=== PATIENT | female | born 1970 | race Caucasian/White ===

== ENCOUNTER → 2017-04-16 | Outpatient (CLI) | payer BC, MEDICARE ==
[~2017-04-16] MED LIST: ALLERGY RELIEF10 M3; ALLERGY RELIEF10 M3 PO; AMBIEN 10 MG TA10 MG PO; AMITIZA8 MCG PO; AMITRIPTYLINE H50 M2 PO; AMITRIPTYLINE H50 M4 PO; AMITRIPTYLINE H75 M1 PO; ATORVASTATIN CA10 MG PO; BLACK COHOSH540 MG PO; BREO ELLIPTA 21 EACH; BREO ELLIPTA 21 EACH INH; CALCIUM 600 +1 EAC1 PO; CALCIUM 600 +1 EAC5 PO; CHANTIX1 MG PO; CLONAZEPAM 1 MG1 M1 PO; CLONAZEPAM PO; CLONIDINE0.1 PO; CRESTOR5 MG PO; CYCLOBENZAPRINE10 MG PO; CYMBALTA60 MG PO; DICLOFENAC POTA50 MG PO; DILAUDID 4 MG TA4 M1 PO; DURAGESIC1 EACH TRANSDERM; DURAGESIC25 MCG/HR TRANSDERM; EXCEDRIN CAPLE1 EACH PO; FENOFIBRATE160 MG PO; FENTANY TRANSDERM; FENTANYL PA12 MCG/HR TP; FENTANYL PA25 MCG/HR TRANSDERM; FENTANYL PA50 MCG/HR TP; FENTANYL PATCH75 MCG TP; FIBER SELECT G1 EACH PO; IMITREX4 MG/0.5 M SQ; KLONOPIN1 MG PO; LAMOTRIGINE100 MG PO; LINZESS145 MCG PO; LIPITOR 10 MG10 M1 PO; MAGNESIUM CITR100 GM MC; METHADONE HCL 110 M1 PO; METHOCARBAMOL500 M1 PO; MIRALAX17 GM PO; MIRALAX255 GM PO; NABUMETONE 500500 M1 PO; NABUMETONE 750750 M1 PO; OMEPRAZOLE40 MG PO; ONDANSETRON HCL4 M2 PO; ONE-A-DAY WOMENS PO; OXCARBAZEPINE600 MG; OXYCODONE HCL15 MG PO; PAIN CREAM; PERCOCET 10-321 EACH PO; PREMARIN1.25 MG PO; PRENATAL PO; PROAIR HFA8.5 GM INH; PROAIR HFA8.5 GM PO; RELAFEN750 MG PO; REQUIP 0.25 M0.25 MG PO; RESTASIS1 EACH OPHTHALMIC; RIZATRIPTAN5 MG PO; SAVELLA50 MG PO; STOOL SOFTENER100 MG PO; SUMATRIPTAN SUC50 MG PO; SYMBICORT160 MCG/4. INH; TOPAMAX100 MG PO; TOPROL XL25 MG PO; TRILEPTAL600 MG PO; WELLBUTRIN SR150 MG PO; WELLBUTRIN SR200 MG PO; [UNRECOGNIZED DRUG - OTHER] PO; biotene; fentanyl TRANSDERM; linzess PO; vitamin b; vitamin b12; vitamin c
--- NOTE | 2017-05-01 09:02 | PAINCON ---
[place] [address] PAIN MANAGEMENT CONSULTATION Name: GAVIOTA HOYOS [facility] [id number] Admission: 04/16/17 Attend Phys: Iker Menendez DO Discharge: Date of : 70 Report #: [id number] THIS REPORT FOR: //name// CC: Fareed Menendez DATE OF SERVICE: 04/16/2017 CHIEF COMPLAINT: Neck pain, low back pain, and bilateral hip pain. HISTORY OF PRESENT ILLNESS: As you know, the patient is a 46-year-old female with multiple pain generators, the majority of symptoms are related to the neck and low back, now experiencing bilateral hip pain. She returns today in followup visit for medication management. Overall, the patient reports a 50% improvement in overall pain with cervical epidural injections, most recent was in January. She is considering the next in a series of injections, but at this time is requesting refill of medications for which she reports 45% improvement in overall pain. She returns requesting refill on medications, understanding that her medications are at the highest level possible per CDC's recommended guidelines. ALLERGIES: ISOPROTERENOL, PENICILLIN, and CODEINE. CURRENT MEDICATIONS: Amitriptyline, Excedrin, Lipitor, Wellbutrin, calcium carbonate, clonazepam, Premarin, fenofibrate, fentanyl, Linzess, loratadine, metoprolol, Savella, magnesium citrate, omeprazole, ondansetron, oxycodone, and MiraLax. SOCIAL HISTORY: The patient smokes about a half pack tobacco per day and has done so for greater than 30 years. She denies IV or illicit drug use. Denies any chronic alcohol use. She is unaccompanied today. IMAGING: No new imaging available. PHYSICAL EXAMINATION: VITAL SIGNS: Blood pressure 137/93, pulse 84, respiratory rate 16 and unlabored, the patient is 97% on room air, current temperature 98.3 degrees Fahrenheit, height 5 feet 3 inches tall, weight 160 pounds, and BMI calculated 28.3. GENERAL: Well-developed, well-nourished, well-hydrated 46-year-old female, appearing stated age, placing current pain score 7/10. HEENT: Normocephalic, atraumatic. Pupils are equal, round, and reactive to light. Extraocular muscles are intact. Speech is fluent. EXTREMITIES: Show no clubbing, no cyanosis, and no edema. MUSCULOSKELETAL: Upper extremity strength is symmetrical again today 5/5. She is intact to light touch from C5-T1 dermatomes. [place] [address] PAIN MANAGEMENT CONSULTATION Name: GAVIOTA HOYOS Room: [facility]#: [id number] Admission: 04/16/17 Attend Phys: Iker Menendez DO Discharge: Date of : 70 Report #: [id number] left. Gait is antalgic, using a cane for ambulation, favoring left lower extremity over right. ASSESSMENT: 1. Cervical radiculopathy. 2. Cervical spondylosis with radicular symptoms. 3. Myofascial pain. 4. Chronic low back pain. 5. Chronic intractable pain. 6. Opioid dependency. PLAN: 1. The patient returns today in followup visit requesting refill on medications at current dosing. She is noted to be on a fairly high dose of opioids currently over what the CDC recommends, but we have been unsuccessful alleviating pain and continuing to provide medications at CDC recommended levels. We have discussed this again with the patient and have indicated there is possibility that she may ultimately have to look towards more aggressive treatment options. At this time, the patient wishes to remain on current therapy understanding that she ultimately will need to make some changes in her treatment options as the [facility] makes further changes. She has requested that she will return also in approximately 2 weeks for the possibility of undergoing a cervical epidural injection, which we will begin the process of preapproval. 2. The patient was provided a prescription of fentanyl 25 mcg patch 1 patch q.72 hours, this in conjunction with a 12 mcg patch q.72 hours equaling 37 mcg total dosing. She was given the following prescriptions to make the 37 mcg total, she received ten 25 mcg patches and ten 12 mcg patches releasing of today, 4 weeks from today, 8 weeks from today, a total of 37 mcg. 3. The patient was provided a prescription of oxycodone 5/325 one tab every 6 hours p.r.n. for pain, #120, release dates of today, 4 weeks from today, 8 weeks from today, 3 months' worth of medication. 4. The patient was provided a prescription of diclofenac potassium 50 mg dose 1 tab p.o. b.i.d., #180, which is a 3-month prescription. 5. The patient was provided a prescription of methocarbamol 500 mg dose 1 tab p.o. t.i.d., #270, which is a 3-month prescription. 6. We will see the patient back in followup visit for possible cervical epidural injection in 2-3 weeks. Otherwise, we will see the patient back in followup visit at normal appointment time for 3-month prescription refills. <ELECTRONICALLY SIGNED> [place]: [place] [id number] lupe Caceres
== END ==
LOC: M.PC 00:54
DX: M25.552 Pain in left hip (principal); M54.12 Radiculopathy, cervical region; M47.892 Other spondylosis, cervical region; M79.1 Myalgia; F11.20 Opioid dependence, uncomplicated; G89.29 Other chronic pain; Z87.891 Personal history of nicotine dependence

== ENCOUNTER → 2017-07-10 | Outpatient (CLI) | payer BC, MEDICARE ==
--- NOTE | 2017-07-18 15:40 | PAINCON ---
[address] [address] PAIN MANAGEMENT CONSULTATION Name: SOHAGAVIOTA Carlos Room: [facility].#: [id number] Admission: 07/10/17 Attend Phys: Verena Soto MD Discharge: Date of : 70 Report #: [id number] THIS REPORT FOR: //name// CC: Fareed uQan DATE OF SERVICE: 07/10/2017 FOLLOWUP COMPLAINT: Pain in the neck, left hip and right hip. FOLLOWUP HISTORY: The patient is a 46-year-old female, who has been followed in the Pain Clinic by Dr. Iker Menendez. She has an extensive history of back pain. She has been seen and has had back surgery on a number of occasions. She has reached maximum surgical benefit at this juncture. She has been treated with opioid medications to help control her pain. She rates it as a 7/10. Pain is particularly exacerbated when she is active. Notes that the pain is worse when she is sitting on her left hip as well as sometimes while lying down. Pain medications are beneficial as well as heat and rest. She states that she had surgery with back decompression and instrumentation in 1997. In 2000, she had a back revision in about the L3-L4, L4-L5, and L5-S1 area. She has had titanium cages placed. She had an additional surgery secondary to nerve pain because of a screw pressing on a nerve. ALLERGIES: PENICILLIN, CODEINE, ISUPREL. MEDICATIONS: Current medications: Amitriptyline 50 mg at bedtime for migraines, aspirin (Excedrin) p.r.n. migraines, Lipitor 10 mg, 5 mg tablets at bedtime, Wellbutrin 200 mg SR for migraines, calcium, clonazepam 1 mg t.i.d., stool softener docusate 100 mg, estrogen/Premarin 1.2 mg b.i.d., fenofibrate 160 mg for cholesterol, fentanyl patch 75 mcg topical q. 72 hours, insulin, Linzess 145 mcg capsules, loratadine 10 mg for migraines, magnesium citrate 500 g, metoprolol 25 mg, Savella 50 mg b.i.d. for nerve pain to left leg, multivitamin, Omeprazole 40 mg, Ondansetron 4 mg q. 8 hours p.r.n., oxycodone IR 15 mg 1 tablet q.i.d., Restasis b.i.d., ProAir t.i.d. Medications used in the past: Imitrex, Topamax, sumatriptan tablet b.i.d., Relafen 750 mg. PAST MEDICAL HISTORY: Neck pain, low back pain, bilateral hip pain, myofascial pain, back fusion x3, tobacco use, migraine headaches, hypercholesterolemia, hypertension. SOCIAL HISTORY: Smokes cigarettes and smoked for 30 years, but denies [place] [address] PAIN MANAGEMENT CONSULTATION Name: SOHAGAVIOTA M Room: [facility]#: [id number] Admission: 07/10/17 Attend Phys: Verena Soto MD Discharge: Date of : 70 Report #: [id number] PAST SURGICAL HISTORY: Lumbar surgery, fusion, low back x3. PAIN CLINIC ASSESSMENT: 1. The patient has arthritic changes in the low back area. 2. Height 5 feet 3 inches, weight 162 pounds, BMI is 28.8. 3. Vital signs: Blood pressure 135/90, heart rate 93, respiratory rate 16, room air saturation 97, temperature 98.3. 4. Pain intensity: Pain in the neck is 7, pain in the low back in the area of fusion is 7. 5. Fall risk: The patient has not fallen in the last 3 months. 6. Blood thinner: The patient is not on a blood thinner. 7. History of hypertension: The patient is being treated for hypertension. 8. Opioid therapy greater than 6 weeks: The patient is on a contract with the Pain Clinic. 9. Risk assessment tool. 10. Functional assessment tool. 11. Recreational drug use: The patient denies use of recreational drugs. 12. Tobacco: The patient has 31-[id number]-cvfq history and smokes 1/2 pack per day. 13. Alcohol use: Uses alcohol on rare occasion. PHYSICAL EXAMINATION: GENERAL: The patient is a well-developed, well-nourished, white female. Appears her stated age. Rates her pain as a 7/10. HEENT: Normocephalic, atraumatic. Extraocular eye muscles intact. Sclerae nonicteric. Hearing is within normal limits. Mucous membranes are moist. NECK: Without adenopathy or bruits. CHEST: Clears to auscultation. HEART: Regular rate without murmur. MUSCULOSKELETAL: Without significant scoliosis, kyphosis or lordosis. Upper extremity: The patient rates her pain as a 7. She has pain radiating to her arms which has improved in the past with epidural steroid injections. Lower extremities: The patient has pain in the lower back with pain in her left hip greater than that in the right. Generally, muscle strength is 5/5 for the major muscle groups in the lower extremity. Muscle bulk is symmetrical. Upper extremities strength is 5/5, intact to light touch. C5-T1 dermatomes. Spurling test positive on the left. Gait is antalgic, using a cane for ambulation favoring her left lower extremity over the right. ASSESSMENT: 1. Cervical radiculopathy. 2. Cervical spondylosis with radicular symptoms. 3. Myofascial pain. 4. Chronic low back pain. 5. Chronic intractable pain. 6. Opioid dependency. 7[place] [address] PAIN MANAGEMENT CONSULTATION Name: SOHAGAVIOTA M Room: [facility]#: [id number] Admission: 07/10/17 Attend Phys: Verena Soto MD Discharge: Date of : 70 Report #: [id number] 8. Hypercholesterolemia. 9. Hypertension. RECOMMENDATIONS: We discussed treatment with the patient. At this juncture, she feels like her medications are working reasonably well. She does have a significant surgical history. She continues to have pain and discomfort, which at this juncture is reasonably controlled with her medications. We will continue to work toward the CDC recommendations. She will return to the Pain Clinic in the future. At that point, she will consider a cervical epidural steroid injection. We will renew her medications for fentanyl 25 mcg patches q. 72 hours in conjunction with a 12 mcg patch for a total of 37 mcg per hour. A script for oxycodone has also been rewritten. She will call us if she has any problems with her medications. We would like to thank you for letting us participate in her care. We hope she continues to improve. <ELECTRONICALLY SIGNED> By: Verena Soto MD 07/18/17 1540 [id number]. Angelo Soto MD /nt
== END ==
LOC: M.PC 03:00
DX: M54.12 Radiculopathy, cervical region (principal); I10 Essential (primary) hypertension; E78.00 Pure hypercholesterolemia, unspecified; M47.892 Other spondylosis, cervical region; M79.1 Myalgia; G43.909 Migraine, unspecified, not intractable, without status migrainosus; F11.20 Opioid dependence, uncomplicated; F17.220 Nicotine dependence, chewing tobacco, uncomplicated

== ENCOUNTER → 2017-10-02 | Outpatient (CLI) | payer BC, MEDICARE ==
--- NOTE | 2017-10-04 15:18 | PAINCON ---
[address] [address] PAIN MANAGEMENT CONSULTATION Name: SOHAGAVIOTA Carlos Room: [facility]#: [id number] Admission: 10/02/17 Attend Phys: Verena Soto MD Discharge: Date of : 70 Report #: [id number] THIS REPORT FOR: //name// CC: Fareed Soto DATE OF SERVICE: 10/02/2017 FOLLOWUP COMPLAINT: Here for medication and I would like to have a cervical epidural steroid injection. FOLLOWUP HISTORY: The patient is a 47-year-old female who has been followed in the pain clinic. She has history of back pain. Also, has a history of back surgery on number of occasions. She has undergone maximum number of surgeries at this juncture. She has been treated with opioid medication for control of her pain. She does have some pain and discomfort involving her neck with pain that radiates down into both arms. She rates this as a 6/10 at this juncture. She has undergone cervical epidural steroid injections and gleaned benefits from these. It has been greater than 6-7 months that she has had a cervical epidural steroid injection and found benefit from these. She would like to proceed with a cervical epidural steroid injection at this juncture. She finds that her fentanyl, Percocet, and other pain medications are helpful. She is somewhat stressed and that her recently underwent heart surgery. Had aortic valve surgery and has had a second one about 4-5 days ago. He is now at home. He did have some complications where his leg swollen and had a compartment syndrome. Because of this added stress and care for her she has noted worsening of her pain and discomfort; therefore, she would like to proceed with a cervical epidural steroid injection. ALLERGIES: PENICILLIN, CODEINE, ISUPREL. MEDICATIONS: Amitriptyline 50 mg at bedtime for migraines, aspirin p.r.n., for migraines, Lipitor 10 mg, 5 mg tablets at bedtime, Wellbutrin 200 mg SR for migraines, calcium, clonazepam 1 mg t.i.d., stool softener, docusate 100 mg, estrogen/Premarin 1.2 mg b.i.d., Fenofibrate 160 mg for cholesterol, fentanyl patch 75 mcg q. 12 hours, insulin, Linzess 145 mcg capsule, loratadine 10 mg for migraines, magnesium citrate 500 mg, metoprolol 25 mg, Savella 50 mg b.i.d. for nerve pain to the left leg, multivitamin, omeprazole 40 mg, ondansetron 4 mg q. 8 hours, oxycodone IR 15 mg 1 tablet q.i.d., Restasis b.i.d., ProAir t.i.d. MEDICATIONS: Her medication use Include Imitrex, Topamax, sumatriptan b.i.d., Relafen. PAST SURGICAL HISTORY: Lumbar surgery, fusion, low back x 3. PAIN CLINIC ASSESSMENT: [place] [address] PAIN MANAGEMENT CONSULTATION Name: GAVIOTA HOYOS [facility] [id number] Admission: 10/02/17 Attend Phys: Verena Soto MD Discharge: Date of : 70 Report #: [id number] 1. The patient has arthritic changes in the lower portion of her back. 2. Height 5 feet 3 inches, weight 164 pounds, BMI is 29. 3. Vital signs: Blood pressure 129/73, heart rate 82, respiratory rate 16, room air saturation 95% and temperature 98.2. 4. Pain intensity 09/16. 5. Fall risk. The patient has not fallen in the last 3 months. 6. Blood thinner. The patient is not on a blood thinning medication. 7. History of hypertension. The patient is being treated for hypertension. 8. Opioid therapy greater than 6 weeks. The patient is on a contract with the pain clinic gets her medication from one source. 9. Risk assessment tool. 10. Functional assessment tool. 11. Recreational drug use. The patient denies use of recreational drugs. 12. Tobacco: The patient has a 92-epwo-brpc history and smokes 1-1/2 pack of cigarettes per day. 13. Alcohol use. The patient uses alcohol on rare occasion. PHYSICAL EXAMINATION: GENERAL: The patient is a well-developed, well-nourished white female. She appears her stated age. She is alert and oriented x 3. Speech is fluent. Affect is appropriate. HEENT: Normocephalic, atraumatic. Extraocular eye muscles intact. Sclerae nonicteric. Hearing is within normal limits. Mucous membranes are moist. NECK: Without adenopathy or bruits. CHEST: Clear to auscultation. HEART: Regular rate without murmurs. MUSCULOSKELETAL: Without significant scoliosis, kyphosis or lordosis. Upper extremity, the patient has a pain, which she rates as a 6-7. She has pain that radiates down into her arms. This is improved in the past with cervical epidural steroid injection that she would like to proceed with an injection at this juncture. EXTREMITIES: Muscle strength is judged to be 5/5 for the major muscle groups in the lower extremities. Muscle bulk is symmetrical. Upper muscle strength is 5/5. Intact to light touch. ____ through T1 dermatomes Spurling's test is positive on the left. Gait is antalgic. The patient walks with use of her cane favoring her left lower extremity on the right. ASSESSMENT: 1. Cervical radiculopathy. 2. Cervical spondylosis with radicular symptoms. 3. Myofascial pain. 4. Chronic low back pain. 5. Chronic intractable pain. 6. [place] [address] PAIN MANAGEMENT CONSULTATION Name: GAVIOTA HOYOS Room: [facility]#: [id number] Admission: 10/02/17 Attend Phys: Verena Soto MD Discharge: Date of : 70 Report #: [id number] 7. Migraines. 8. Hypercholesterolemia. 9. Hypertension. RECOMMENDATIONS: We discussed treatment options with the patient. Risks and benefits of a cervical epidural steroid injection were again reviewed. Possible complications were discussed. They include but are not limited to infection, increased muscle soreness, headache, bleeding, muscle tenderness. The patient elects to proceed. A script for fentanyl patches 25 mcg 1 q. 72 hours and 12 mcg q. 72 hours for a total of 37 mcg per hour has been written. The patient has also been given a script for oxycodone. She will proceed with a cervical epidural steroid injection. PROCEDURE NOTE: The patient was taken to the procedure area. She was assisted in getting on the examination table. Her back was sterilely prepped with a Betadine solution, which was allowed to dry. A pillow was placed under her chest for bolstering and improvement of cervical positioning. Fluoroscopy using anterior, posterior as well as lateral imaging were used. A 17-gauge Tuohy with loss of resistance technique was placed in the midline cervical area at the C7-T1. A total of 120 mg triamcinolone was injected. Anterior, posterior as well as lateral viewing were appropriate. The patient tolerated the procedure well. A Band-Aid was placed in the appropriate area. No bleeding was noted. The patient was taken to the recovery room where she remained for an appropriate amount of time. She will follow up in the future as needed. We would like to thank you for letting us participate in her care. We hope she continues to improve. <ELECTRONICALLY SIGNED> By: Verena Soto MD 10/04/17 1518 [id number]. Angelo Soto MD /nt
== END | disposition home or self-care (01) ==
LOC: M.PC 04:56
DX: M47.22 Other spondylosis with radiculopathy, cervical region (principal); M79.1 Myalgia; G89.29 Other chronic pain; I10 Essential (primary) hypertension; G43.909 Migraine, unspecified, not intractable, without status migrainosus; E78.00 Pure hypercholesterolemia, unspecified; F11.20 Opioid dependence, uncomplicated; Z88.0 Allergy status to penicillin; Z88.8 Allergy status to other drugs, medicaments and biological substances; Z98.890 Other specified postprocedural states; Z79.899 Other long term (current) drug therapy; Z79.82 Long term (current) use of aspirin

== ENCOUNTER → 2017-12-18 | Outpatient (CLI) | payer BC, MEDICARE ==
--- NOTE | 2018-01-21 10:30 | PAINCON ---
[address] [address] PAIN MANAGEMENT CONSULTATION Name: SOHAGAVIOTA Gonzalez Room: [facility].#: [id number] Admission: 12/18/17 Attend Phys: Verena Soto MD Discharge: Date of : 70 Report #: [id number] THIS REPORT FOR: //name// CC: Fareed Soto DATE OF SERVICE: 12/18/2017 CHIEF COMPLAINT: Neck and back pain. HISTORY OF PRESENT ILLNESS: The patient is a 47-year-old female who has been followed in the pain clinic because of chronic back pain. She has a history of a number of back surgeries. She has undergone epidural steroid injections in the past. She claims some benefits from this in the past. She is having pain in her left hip and foot. Complains of a deep throbbing discomfort. She is frequently experiencing spasms. She has a history of bursitis. Overall, she rates her pain as a 7/10. She finds fentanyl patches to be beneficial. Does have some problems with the adhesives on ____. She would like to continue with fentanyl patches. She has had cages in the lower back area. She feels that there may have been some changes in her back at this juncture. She is experiencing more pain and she would ____ ADDENDUM ALLERGIES: PENICILLIN, CODEINE, ISUPREL. CURRENT MEDICATIONS: ProAir, amitriptyline 50 mg at bedtime, Excedrin 1 tablet, Lipitor 10 mg, b black cohosh 540 mg, Symbicort 160/4.5, Wellbutrin-SR 200 mg, vitamin D3 600, clonidine 0.1 mg tablet, Restasis one drop each eye b.i.d., potassium 50 mg t.i.d., estrogen 1.25 b.i.d., fenofibrate 160, Duragesic 12.5 mcg patch, Mylan brand q. 72 hours. PAIN CLINIC ASSESSMENT: 1. The patient has some arthritic changes in her back secondary to back surgery. 2. Height 5 feet 3 inches, weight 157 pounds, BMI 25. 3. Vital signs: Blood pressure 129/74, heart rate 81, respiratory rate 16, room air saturation 98%, temperature 98. 4. Pain score 7/10. 5. Fall history: The patient has not fallen in the last 3 months. 6. Blood thinner. The patient is not on a blood thinning medication. 7. Hypertension. The patient has not been treated for hypertension. 8. Opiate therapy greater than 6 weeks. The patient receives her medications through the pain clinic. 9. Risk assessment tool. 10. [place] [address] PAIN MANAGEMENT CONSULTATION Name: GAVIOTA HOYOS Room: [facility]#: [id number] Admission: 12/18/17 Attend Phys: Verena Soto MD Discharge: Date of : 70 Report #: [id number] 11. Recreational drug use. The patient denies use of recreational drugs. 12. Tobacco: The patient has smoked for 30 years. Smokes 1/3rd pack of cigarettes daily. 13. Alcohol: The patient drinks an alcoholic beverage weekly. PHYSICAL EXAMINATION: GENERAL: The patient is a well-developed, well-nourished white female. She appears her stated age. She is alert and oriented. Speech is fluent. Affect is appropriate. HEENT: Normocephalic, atraumatic. Extraocular eye muscles intact. Sclerae nonicteric. Hearing is within normal limits. Mucous membranes are moist. NECK: Without adenopathy or bruits. CHEST: Clear to auscultation without rhonchi or rales. HEART: Regular rate without murmurs. MUSCULOSKELETAL: Without significant scoliosis, kyphosis, or lordosis. The patient does sit in a chair, leaning extremely to the right with her left buttocks off the chair. Complains of pain and discomfort with pain in the left hip, which is deep, throbbing. States that this wakes her in the morning. She has a deep ache. She has difficulty walking and placing weight on this side. Upper extremity muscle strength is judged to be 5/5. The patient uses her hands to go on the chair to go from a sitting to a standing position. IMPRESSION: 1. History of cervical radiculopathy, improved with cervical epidural steroid injection on 10/02/2017. 2. History of bursitis with pain and discomfort in the left hip area today. 3. Myofascial pain. 4. Chronic low back pain. 5. Chronic intractable pain. 6. Opioid dependency. 7. Migraines. 8. Hypercholesterolemia. 9. Hypertension. RECOMMENDATION: The patient feels that her pain level has changed. We will have the patient to undergo an MRI to note changes in the lumbar area. She feels again that her pain is quite problematic. She has a history of cages placed to stabilize the low back area. She has significant pain and discomfort in her right leg and hip. The patient feels that if there are some changes that she would consider surgery to help minimize her pain and discomfort. A script for her medications of fentanyl patches 25 mcg and 50 mcg dosings were provided. A script for Percocet 10/325 one p.o. q.4-6 hours also has been written. We discussed the use of opioid medications with the patient. We explained the problems with opioid medications, which can cause dependency as well as become less effective as the patient develop tolerance. The patient is aware of this fact and would like to continue with her medications at this [place]uncture[place] [address] PAIN MANAGEMENT CONSULTATION Name: SOHAGAVIOTA Carlos Room: [facility]#: [id number] Admission: 12/18/17 Attend Phys: Verena Soto MD Discharge: Date of : 70 Report #: [id number] for these medications has been written. We would like to thank you for letting us participate in her care. We hope she continues to improve. <ELECTRONICALLY SIGNED> By: Verena Soto MD 01/21/18 1030 [id number]. Angelo Soto MD /nt
== END ==
LOC: M.PC 04:47
DX: M54.12 Radiculopathy, cervical region (principal); I10 Essential (primary) hypertension; E78.00 Pure hypercholesterolemia, unspecified; G43.909 Migraine, unspecified, not intractable, without status migrainosus; M54.5 Low back pain; M79.1 Myalgia; G89.4 Chronic pain syndrome; F11.20 Opioid dependence, uncomplicated

== ENCOUNTER → 2017-12-25 | Outpatient (CLI) | payer BC, MEDICARE | LOC: M.RAD 15:39 → M.MRI 15:39 | DX: M43.26 Fusion of spine, lumbar region (principal); M25.551 Pain in right hip; M79.604 Pain in right leg ==

== ENCOUNTER → 2018-03-21 | Outpatient (CLI) | payer BC, MEDICARE ==
--- NOTE | ~2018-03-21 | PAINCON ---
[address] [address] PAIN MANAGEMENT CONSULTATION Name: SOHAGAVIOTA Gonzalez Room: [facility].#: [id number] Admission: 03/21/18 Attend Phys: Verena Soto MD Discharge: Date of : 70 Report #: [id number] THIS REPORT FOR: //name// CC: Fareed Barajas DATE OF SERVICE: 04/01/2018 CHIEF COMPLAINT: "Pain in the left hip, neck and back. Here for medication renewal." FOLLOWUP HISTORY: The patient is a 47-year-old female who has been followed in the Pain Clinic because of chronic back pain. She has pain in her left hip, neck and back as well at this juncture. She describes the pain in her left hip as the most problematic portion today. It is a deep throbbing pain. She also has pain in her neck that radiates into both arms, right more so than the left. She feels that her medications are helpful. She has returned today for renewal of her medications. She has undergone epidural steroid injections in the past. She has a history of bursitis. This significance of pain in her low back area has been quite problematic and has resulted in use and placement of cages in the lower portion of her back. She rates her pain as a 7.5-8 today. She has returned with a desire to undergo renewal of her medications. Overall, she feels that with the medications there is about a 50% improvement in her pain. ALLERGIES: PENICILLIN, CODEINE, ISUPREL. CURRENT MEDICATIONS: ProAir, amitriptyline 50 mg at bedtime, ____ mg, Lipitor 10 mg, black cohosh 540 mg, Symbicort 160/4.5, Wellbutrin-SR 200 mg, vitamin D3 of 600 mg, clonidine 0.1 mg, Restasis drops to each eye b.i.d., potassium 50 mg t.i.d., estrogen 1.25 mg b.i.d., fenofibrate 160 mg, Duragesic patch 12.5 mcg Mylan brand q. 72 hours, Breo Ellipta 200-25, loratadine 10 mg for allergies, magnesium citrate, methocarbamol 500 mg, metoprolol XL 25 mg, Savella 50 mg, multivitamin, Zofran 4 mg, diclofenac. LABORATORY DATA: MRI of the lumbar spine dated 12/25/2017 revealed: 1. Laminectomies L3 through L5 with anterior fusion. 2. L2-L3 [id number] central canal stenosis due to mild anterolisthesis and mild disc bulging and ligamentum thickening. Advanced L2-L3 degenerative disc space loss. 3. Left-sided L2-L3 mild neural foraminal narrowing. X-ray hip AP and lateral left and pelvis for pain problematic for the last 5 months, comparison with 09/13/2015 findings, [place] [address] PAIN MANAGEMENT CONSULTATION Name: GAVIOTA HOYOS Room: [facility]#: [id number] Admission: 03/21/18 Attend Phys: Verena Soto MD Discharge: Date of : 70 Report #: [id number] seen. There is lower lumbar fusion. No acute abnormalities. Normal disc spaces. PAIN CLINIC ASSESSMENT/PQRS: 1. History of osteoarthritis with arthritic changes in the lower portion of the back. 2. Height 5 feet 3 inches, weight 148 pounds, BMI is 26.3. 3. Vital signs: Blood pressure 119/85, heart rate 84, respiratory rate 16, room air saturation 99%, temperature 98.2. 4. Pain intensity: 7.5-8/10. 5. Fall history: The patient has not fallen in the last 3 months. 6. Blood thinner: The patient is not on a blood thinning medication. 7. Hypertension: The patient is being treated for hypertension. 8. Opioids: The patient receives her medications from one source, the Pain Clinic for opioid use. 9. Risk assessment tool: Moderate for opioid use. 10. Functional assessment tool. 11. Recreational drug use: The patient denies. 12. Tobacco: The patient smokes about 2 cigarettes daily. We again have discussed the benefits of smoking cessation. 13. Alcohol: The patient denies use of alcoholic beverages. PHYSICAL EXAMINATION: GENERAL: The patient is a well-developed, well-nourished white female. She appears her stated age. She is alert and oriented x 3. Affect is appropriate. Speech is fluent. HEENT: Normocephalic, atraumatic. Extraocular eye muscles intact. Sclerae nonicteric. EXTREMITIES: No clubbing, cyanosis or edema. MUSCULOSKELETAL: Upper extremity muscle strength is judged to be symmetrical and 5/5 for the major muscle groups, but has some light touch changes at C5 through T1 dermatomes. Spurlings test is mildly positive, mainly on the left. Palpation of the lumbar spine causes intensification of pain. Gait is antalgic. IMPRESSION: 1. Chronic lumbar radicular pain. 2. Chronic cervical radicular pain. 3. Cervical spondylosis with radicular symptoms. 4. Lumbosacral spondylosis with radicular pain status post cage placements in the low back area. 5. Opioid dependency. 6. Chronic intractable pain. 7. Complicated medical regimen, using opioid medications. RECOMMENDATIONS: We discussed treatment options with the patient. At this point, we will continue with her current medications[place] [address] PAIN MANAGEMENT CONSULTATION Name: GAVIOTA HOYOS Room: [facility]#: [id number] Admission: 03/21/18 Attend Phys: Verena Soto MD Discharge: Date of : 70 Report #: [id number] medications has been rewritten. Oxycodone 10/325, Duragesic 12.5 mcg q. 72 hours, methocarbamol 500 mg one p.o. t.i.d., Savella 50 mg b.i.d., fentanyl patch 25 mcg transdermal, diclofenac 50 mg tablets b.i.d. with meals have all been rewritten. The patient will call us if she has any concerns. We would like to thank you for letting us participate in her care. We hope she continues to improve. By: [id number]. Angelo Soto MD /nt
== END ==
LOC: M.PC 03-12 08:40
DX: M47.27 Other spondylosis with radiculopathy, lumbosacral region (principal); M47.22 Other spondylosis with radiculopathy, cervical region; G89.4 Chronic pain syndrome; F11.20 Opioid dependence, uncomplicated; Z79.899 Other long term (current) drug therapy

== ENCOUNTER → 2018-06-27 | Outpatient (CLI) | payer BC, MEDICARE ==
[~2018-06-27] MED LIST changes: +DURAGESIC1 EAC4 TRANSDERM; +LUMIGAN2.5 M1 INTRAOCULR
--- NOTE | ~2018-06-27 | PAINCON ---
[address] [address] PAIN MANAGEMENT CONSULTATION Name: GAVIOTA HOYOS Room: [facility].#: [id number] Admission: 06/27/18 Attend Phys: Verena Soto MD Discharge: Date of : 70 Report #: [id number] THIS REPORT FOR: //name// CC: Fareed Smith MD DATE OF SERVICE: 06/27/2018 CHIEF COMPLAINT: Low back pain. HISTORY: The patient is a 47-year-old female who has been seen in the Pain Clinic because of chronic neck pain as well as chronic back pain. She returns today indicating that the pain in the lower portion of her back and neck are problematic. The low back and left hip area of the most problematic. States that she underwent a myelogram with Dr. Hebert. She is considering surgery in the future. She may need a fusion in the lower portion of her back. Pain is quite problematic and she has returned today for an epidural steroid injection to help quell the pain. Notes that the pain is worse with activities. Use of medications, heat and rest have been somewhat helpful. She states that she has cages in the lower portion of her back. Rates her pain as about 50% improved with her current medications of diclofenac, Savella, fentanyl, oxycodone, and methocarbamol. ALLERGIES: PENICILLIN, CODEINE, ISUPREL. CURRENT MEDICATIONS: ProAir, amitriptyline 50 mg at bedtime, Lipitor 10 mg, black cohosh 540 mg, Symbicort 160/4.5, Wellbutrin-SR 200 mg, vitamin D3 600 mg, clonidine 0.1 mg, Restasis drops to each eye b.i.d., potassium 50 mg t.i.d., estrogen 1.25 mg b.i.d., fenofibrate 160, Duragesic patch 12.5 mcg, Mylan brand q. 72 hours, Breo Ellipta 200/25, loratadine 10 mg, magnesium citrate, methocarbamol 500 mg, metoprolol XL 25 mg, Savella 50 mg, multivitamins, Zofran 4 mg, diclofenac. PAIN CLINIC ASSESSMENT/PQRS: 1. History of osteoarthritis involving the lower back area. The patient is not being treated for rheumatoid arthritis. 2. Height 5 feet 3 inches, weight 147 pounds, BMI is 26. 3. Vital signs: Blood pressure 122/85, her heart rate is 86, respiratory rate is 16, room air saturation 97.9. 4. Pain intensity is 5-6/10. 5. Fall history: The patient has not fallen in the last 3 months. 6. Blood thinner. The patient is not on a blood thinning medication. 7. Hypertension. The patient is being [place] [address] PAIN MANAGEMENT CONSULTATION Name: GAVIOTA HOYOS Room: [facility]#: [id number] Admission: 06/27/18 Attend Phys: Verena Soto MD Discharge: Date of : 70 Report #: [id number] 8. Opioid. The patient receives her medication from one source the Pain Clinic. 9. Risk assessment tool, moderate for opioid use. 10. Functional assessment tool. 11. Recreational drug use. The patient denies use of recreational drugs. 12. Tobacco: The patient smokes few cigarettes a day. Again, we discussed the benefits of smoking cessation. 13. Alcohol: The patient denies use of alcoholic beverages. PHYSICAL EXAMINATION: GENERAL: The patient is a well-developed, well-nourished white female. Appears her stated age. She is alert and oriented x 3. Her affect is appropriate. Speech is fluent. HEENT: Normocephalic, atraumatic. Extraocular eye muscles intact. Sclerae nonicteric. Mucous membranes moist. NECK: Without adenopathy or JVD. EXTREMITIES: No clubbing, cyanosis or edema. MUSCULOSKELETAL: With symmetrical 4+. Muscle strength in the major muscle groups in the upper extremity. The patient has some sensory changes in the C6 through T1 dermatomal distribution. Spurling has been positive in the past. The patient is experiencing pain, which radiates down into the low back area in the upper extremity. IMPRESSION: 1. Cervical radiculopathy in the C5 through T1 dermatomal distribution. 2. Cervical radiculopathy. 3. Chronic lumbar radiculopathy. 4. Cervical spondylosis with radicular symptoms. 5. Lumbar spondylosis with lumbar pain, status post cage placements in the low back area. 6. Opioid dependency. 7. Chronic intractable pain. 8. Complicated drug regimen using opioids. RECOMMENDATIONS: We discussed treatment options with the patient. . She has undergone a cervical epidural steroid injection in the past and gleaned benefits. She has returned today with the desire to undergo an injection. At this juncture, we will proceed with a cervical epidural steroid injection. Risks and benefits of the procedure were again reviewed with the patient. Possible complications of the procedure could include but are not limited to infection, worsening pain, no improvement in pain, trauma, nerve damage, paralysis. The patient elects to proceed. PROCEDURE NOTE: The patient was taken to the procedure area. A pillow was placed on her abdomen under her chest area. This was used to improve the positioning. Fluoroscopy using anterior, posterior [place] [address] PAIN MANAGEMENT CONSULTATION Name: GAVIOTA HOYOS Room: [facility]#: [id number] Admission: 06/27/18 Attend Phys: Verena Soto MD Discharge: Date of : 70 Report #: [id number] were implemented. The patient's neck was sterilely prepped with Betadine solution. A 0.25% bupivacaine was infiltrated in this area. Use of C7/T1 using a 25-gauge needle. A 17-gauge Tuohy with loss of resistance technique was used to gain access to the epidural space. A right paramedian approach was taken. Aspiration was negative. A total of 120 mg triamcinolone was injected. The patient tolerated the procedure well. There were no complications. About 15 seconds fluoroscopy time was used. The patient was also supplied a script for methocarbamol 500 mg 1 p.o. t.i.d., Savella 180 tablets 3-month supply 1 p.o. b.i.d. 50 mg, fentanyl patches, Duragesic, Mylan brand 12 mcg patch and a 20 mcg patch, Percocet 10/325 one p.o. q. 6 hours total of 120 tablets. The patient remained in the Pain Clinic for an appropriate amount of time. She will follow up in the future as needed. We would like to thank you for letting us participate in her care. We hope she continues to improve. By: [id number]. Angelo Soto MD /nt
== END | disposition home or self-care (01) ==
LOC: M.PC 06-11 08:00
DX: M54.12 Radiculopathy, cervical region (principal); M54.16 Radiculopathy, lumbar region; G89.29 Other chronic pain; I10 Essential (primary) hypertension; F11.20 Opioid dependence, uncomplicated; Z88.0 Allergy status to penicillin; Z88.6 Allergy status to analgesic agent; Z79.899 Other long term (current) drug therapy; Z98.890 Other specified postprocedural states

== ENCOUNTER → 2018-12-02 | Outpatient (CLI) | payer BC, MEDICARE | LOC: M.MRI 16:51 | DX: M19.011 Primary osteoarthritis, right shoulder (principal); M75.101 Unspecified rotator cuff tear or rupture of right shoulder, not specified as traumatic ==

== ENCOUNTER → 2018-12-20 | Day surgery (SDC) | payer BC, MEDICARE ==
[~2018-12-20] VITALS: Ht 160 cm; Wt 68.0 kg
[~2018-12-20] MED LIST changes: +COLACE100 MG PO; +DICLOFENAC SOD50 M1 PO; +EVENING PRIMRO500 M1 PO; +EYE DROPS15 M1 OPHTHALMIC; +FENTANYL TOP; +LASIX 20 MG TAB20 MG PO; +OXYCODONE HCL 55 MG PO; +ROPINIROLE HCL4 MG PO
[2018-12-20 08:45] LABS: ABSOLUTE BASOPHILS 0.1 thou/uL (0.0-0.2); ABSOLUTE EOSINOPHILS 0.1 thou/uL (0.0-0.7); ABSOLUTE LYMPHOCYTES 1.6 thou/uL (0.8-5.3); ABSOLUTE MONOCYTES 0.4 thou/uL (0.0-1.2); ABSOLUTE NEUTROPHILS 4.8 thou/uL (1.6-8.1); BASOPHILS 0.8 %; EOSINOPHILS 1.9 %; HEMATOCRIT 35.2 % (37.0-47.0); HEMOGLOBIN 12.1 gm/dL (12.0-15.0); LYMPHOCYTES 23.3 %; MCHC 34.5 g/dL (28.0-37.0); MCV 92.7 fL (80.0-100.0); MONOCYTES 5.1 %; NUCLEATED RBCS 0 /100WBC; PLATELET COUNT* 351 thou/uL (150-400); POLYS 68.9 %; RBC 3.79 mil/uL (4.20-5.00); RDW-CV 13.9 % (10.5-14.5)
[2018-12-20 08:53] VITALS: BP 116/71
[2018-12-20 08:54] LABS: CALCIUM 8.4 mg/dL (8.5-10.1); CREATININE 0.8 mg/dL (0.6-1.3); POTASSIUM 3.9 mmol/L (3.5-5.1)
[2018-12-20 08:59] LABS: ALBUMIN 3.3 g/dL (3.4-5.0); TOTAL BILIRUBIN 0.2 mg/dL (<0.1-1.0)
--- NOTE | 2018-12-20 12:34 | EKG ---
[place] [address] ELECTROCARDIOGRAM REPORT Name: GAVIOTA HOYOS Room: [facility]#: [id number] Admission: 12/20/18 Attend Phys: Jhonathan Penaloza DO Discharge: Date of : 70 Report #: [id number] THIS REPORT FOR: //name// [facility] Test Date: 2018-12-20 Test Time: 08:27:10 Pat Name: GAVIOTA HOYOS Department: Room: Gender: F Ham Sawyer: DELORIS : 1970 Requested By: Jhonathan Penaloza Order Number: [id number] Reading MD: Dev De La Paz Measurements Intervals [place] Rate: 84 P: 62 TX: 137 QRS: 45 QRSD: 93 T: 32 QT: 380 QTc: 450 Interpretive Statements Sinus rhythm Borderline low voltage, extremity leads No previous ECG available for comparison Electronically Signed On 12-20-2018 12:33:50 CDT by Dev De La Paz [email or web address] <ELECTRONICALLY SIGNED> By: Dev De La Paz MD, [facility] 12/20/18 1233 0827 0827 Dev De La Paz MD, FACC /EPI
[2018-12-20 12:50] VITALS: BP 116/71
--- NOTE | 2018-12-21 22:19 | OP ---
[address] [address] OPERATIVE REPORT Name: GAVIOTA HOYOS Room: [facility]#: [id number] Admission: 12/20/18 Attend Phys: Jhonathan Penaloza DO Discharge: Date of : 70 Report #: [id number] THIS REPORT FOR: //name// CC: Fareed Penaloza DICTATED BY: Paulie Ayala DO DATE OF SERVICE: 12/20/2018 PREOPERATIVE DIAGNOSIS: Right shoulder high-grade rotator cuff partial thickness tear with subacromial impingement and acromioclavicular arthrosis. POSTOPERATIVE DIAGNOSIS: Right shoulder high-grade rotator cuff partial thickness tear with subacromial impingement and acromioclavicular arthrosis. SURGEON: Jhonathan Penaloza DO [employer] ENGRAVER HAND: Paulie Ayala DO OPERATION: Right shoulder arthroscopy with rotator cuff repair, distal clavicle excision, and subacromial decompression. ANESTHESIA: General plus preoperative interscalene block. ESTIMATED BLOOD LOSS: 10 mL. DRAINS: None. SPECIMENS: None. COMPLICATIONS: None. ANTIBIOTICS: 600 mg IV clindamycin given preoperatively. INDICATIONS FOR PROCEDURE: The patient is a pleasant 48-year-old female followed in the Orthopedic Clinic regarding her right shoulder pain that has been ongoing for several months. She denies any specific injury. She had attempted conservative care with anti-inflammatories and physical therapy, which gave her no response. She continued to have pain, which was interfering with her activities of daily living, therefore we did recommend an MRI, which did confirm a high-grade partial thickness tear of the rotator cuff with significant acromioclavicular arthrosis. Her exam is also consistent with subacromial impingement and bursitis. We did discuss with her treatment options considering she was failing outpatient conservative care and we did recommend right shoulder arthroscopy. Risks, indications, [place] [address] OPERATIVE REPORT Name: SOHAGAVIOTA Carlos Room: [facility]#: [id number] Admission: 12/20/18 Attend Phys: Jhonathan Penaloza DO Discharge: Date of : 70 Report #: [id number] the patient and her informed consent was signed. DESCRIPTION OF PROCEDURE: The patient was identified in the preoperative holding area where she confirmed the operative side and this was marked. She was transferred to the operating suite, placed on operating table in a supine position where general anesthesia was then induced. She was then placed in the beach chair position and secured to the table. The right shoulder area was then sterilely prepped and draped in usual fashion. A timeout was then performed to confirm that our safety checklist had been completed and all the OR personnel were in agreement. The anatomical landmarks were marked out around her right shoulder. A standard posterior portal was established with 11 blade scalpel followed by blunt trocar. A full diagnostic arthroscopy was then performed. The findings included a high-grade articular-sided rotator cuff tear approximately 80%, which included the majority of the anterior portion of the supraspinatus tendon. There was a moderate amount of bursal tissue within the subacromial space. There was significant undersurface spurring of the acromioclavicular joint. The biceps tendon was intact with no significant tearing and the glenohumeral cartilage was well maintained. There were some mild degenerative changes of the labrum. Anterior portal was then established under direct visualization. We utilized an 18 gauge needle to confirm the correct position and trajectory. An 11 blade scalpel was used to incise the skin followed by a blunt trocar. Two accessory portals were also established in the anterolateral and lateral position with similar technique. The high-grade articular-sided rotator cuff tear was marked with an 18-gauge needle, which a Prolene suture was passed through. We then moved to the subacromial space and found the suture tag. The rotator cuff on the bursal side was actually intact; however, it was very thin. The bursal tissue was excised with the arthroscopic shaver allowing for improved visualization. The acromioclavicular joint was also visualized and the arthroscopic shaver and cautery were used to remove the surrounding soft tissue from the joint. An 11 blade scalpel was introduced through the arthroscopic portal and this was used to complete the rotator cuff tear for a length of approximately 1 cm in anterior to posterior direction. The footprint was then prepared utilizing arthroscopic shaver as well as a rasp. Scorpion was then used to pass the Arthrex FiberTape through the supraspinatus tendon. We then punched an anchor on the lateral side of the greater tuberosity. We then passed our FiberTape sutures through the eyelets of the 4.75 Arthrex SwiveLock and this was then impacted into position and found to have good purchase within the bone. The repair was examined and found to have good reapproximation of the tendon with good compression of the footprint. Attention was then taken to the acromioclavicular joint where the arthroscopic shaver and bur were used to remove the undersurface spur. We then performed resection of the distal clavicle utilizing the arthroscopic bur. The bony debris was removed with lavage. The arthroscopic instruments were then removed. Final images were taken. The portal sites were then closed with simple interrupted nylon sutures. A sterile bandage was applied with Xeroform, 4 x 4s, ABD bandages followed by Medipore tape. [place] [address] OPERATIVE REPORT Name: GAVIOTA HOYOS Room: [facility].#: [id number] Admission: 12/20/18 Attend Phys: Jhonathan Penaloza DO Discharge: Date of : 70 Report #: [id number] anesthetic and transferred to PACU in stable condition. A shoulder immobilizer was applied. ATTESTATION: Dr. Penaloza was present for all the critical portions of the operation. <ELECTRONICALLY SIGNED> By: Jhonathan Penaloza DO 12/21/18 2219 1221 1345Ccitlaly Penaloza DO /nt
== END | disposition home or self-care (01) ==
LOC: M.SUR 07:47
PROVIDERS: Orthopaedic Surgery
DX: M75.101 Unspecified rotator cuff tear or rupture of right shoulder, not specified as traumatic (principal); M19.011 Primary osteoarthritis, right shoulder; M75.41 Impingement syndrome of right shoulder; I10 Essential (primary) hypertension; F17.210 Nicotine dependence, cigarettes, uncomplicated; Z88.0 Allergy status to penicillin; Z90.710 Acquired absence of both cervix and uterus; Z88.6 Allergy status to analgesic agent; Z88.8 Allergy status to other drugs, medicaments and biological substances; Z79.899 Other long term (current) drug therapy; Z98.890 Other specified postprocedural states

== ENCOUNTER → 2019-01-09 | Outpatient (CLI) | payer BC, MEDICARE ==
[~2019-01-09] MED LIST changes: +ENDOCET 10-3251 EACH PO; +METHOCARBAMOL500 M2 PO; +OXYCODONE-ACET1 EAC2 PO
--- NOTE | 2019-01-29 09:09 | PAINCON ---
[address] [address] PAIN MANAGEMENT CONSULTATION Name: GAVIOTA HOYOS Room: [facility].#: [id number] Admission: 01/09/19 Attend Phys: Verena Soto MD Discharge: Date of : 70 Report #: [id number] THIS REPORT FOR: //name// CC: Verena Kumar DATE OF SERVICE: 01/09/2019 CHIEF COMPLAINT: Here for medication renewal. I have had my right rotator cuff surgery and it is sore. HISTORY: The patient is a 48-year-old female who has been followed in the pain clinic because of chronic pain. She has had pain in her back. She has undergone back surgery. She is status post L2-L3 laminectomy and L2-L3 transforaminal interbody fusion from L2 through L4. She has instrumentation. This was performed in 09/2018. The patient recently had surgery involving her right rotator cuff. She feels that the pain is quite problematic. Overall, things are improving. The right shoulder surgery was 12/20/2018. She is currently undergoing physical therapy. Rates her pain as about 50% improved at this juncture. Rates her pain as a 4/10. She is wearing a sling on her right arm. ALLERGIES: PENICILLIN, CODEINE, ISUPREL. CURRENT MEDICATIONS: ProAir, amitriptyline 50 mg at bedtime, Lipitor 10 mg, Black Cohosh 540 mg, Symbicort 160/4.5, Wellbutrin-SR 200 mg with vitamin D 600 mg, clonidine 0.1 mg, Restasis drops b.i.d., potassium 50 mEq, estrogen 1.25 mg b.i.d., fenofibrate 160 mg, Duragesic patch 12.5 mcg and a 25 mcg patch for a total of 37.5 mg, Fentanyl, Breo Ellipta 100/25, loratadine 10 mg, magnesium, methocarbamol 500 mg, metoprolol XL 25 mg, Savella 50 mg, multivitamins, Zofran, and diclofenac. PAIN CLINIC ASSESSMENT AND PQRS: 1. The patient has osteoarthritic changes in her back as well as in her right shoulder. She is not being treated for rheumatoid arthritis. 2. Height 5 feet 3 inches, weight 158 pounds, BMI is 28. 3. Vital signs: Blood pressure 132/80, heart rate 86, respiratory rate 16, room air saturation is 98%, and temperature 98.2. 4. Pain intensity 4/10. 5. Fall history: The patient has not fallen in the last 3 months. 6. Blood thinner. The patient is not on a blood thinning medication. 7. Hypertension. The patient is being treated for hypertension. 8. Opioids. The patient receives medication from one source the pain clinic. 9. Risk assessment tool, moderate for opioid use. 10. Functional assessment tool. 11. Recreational [place] [address] PAIN MANAGEMENT CONSULTATION Name: GAVIOTA HOYOS Room: [facility]#: [id number] Admission: 01/09/19 Attend Phys: Verena Soto MD Discharge: Date of : 70 Report #: [id number] 12. Tobacco: The patient smokes cigarettes one-half pack of cigarettes per day and drinks alcoholic beverages weekly. PHYSICAL EXAMINATION: GENERAL: The patient is a well-developed, well-nourished white female. Appears her stated age. She is alert and oriented x 3. Her affect is appropriate. Speech is fluent. HEENT: Normocephalic, atraumatic. Extraocular eye muscles intact. Sclerae nonicteric. Mucous membranes are moist. The patient is wearing glasses. The patient has pain in her right shoulder. Has well-healed incision sites on the anterior portion as well as the posterior portion of her right shoulder, status post rotator cuff repair. ABDOMEN: Nontender. EXTREMITIES: Lower extremity muscle strength judged to be 5-/5 for the major muscle groups in the lower extremity. IMPRESSION: 1. History of cervical radiculopathy and some discomfort in the C5 through T7 area. 2. Cervical radiculopathy history. 3. Chronic lumbar radiculopathy, status post fusion with spacers and screws L2-L3 laminectomy, L2-L3 transforaminal lumbar interbody fusion L2 through L4 lateral fusion with instrumentation 09/2018. 4. Opioid dependency. 5. Chronic intractable pain. 6. Complicated medical management using opioids. RECOMMENDATIONS: We discussed treatment options with the patient. At this juncture, we will continue with her medications. A script for her medications have been rewritten. The patient is aware that opioid medications can be problematic in some people. She is not having any addictive behavior. She has taken the medication as prescribed. Feels that these medications are helpful as she convalesces and continues to reform/improved movement in her right shoulder. She has been provided with a script for her medications. She will continue with Savella 50 mcg 1 p.o. b.i.d., methocarbamol 500 mg 1 p.o. t.i.d. for muscle spasms, diclofenac b.i.d., fentanyl, Duragesic patch 12.5 and a 25 mcg every 72 hours, and Percocet 10/325 one every 6 hours. We would like to thank you for letting us participate in her care. We hope she continues to improve. <ELECTRONICALLY SIGNED> By: Verena Soto MD 01/29/1909 1002N. Angelo Soto MD /nt
== END ==
LOC: M.PC 01-07 08:00
DX: M54.12 Radiculopathy, cervical region (principal); M54.16 Radiculopathy, lumbar region; Z98.1 Arthrodesis status; F11.20 Opioid dependence, uncomplicated; G89.4 Chronic pain syndrome; Z88.0 Allergy status to penicillin; Z79.899 Other long term (current) drug therapy; Z88.8 Allergy status to other drugs, medicaments and biological substances

== ENCOUNTER → 2019-04-29 | Outpatient (CLI) | payer BC, MEDICARE ==
[~2019-04-29] MED LIST changes: +BUPROPION XL300 MG PO; +CLARITIN10 M3 PO; +DRY EYE DROPS; +LUMIGAN2.5 M1 EA. EYE; +MELATONIN3 M1 PO; +MIRALAX119 GM PO; +NEURONTIN 300M300 M2 PO; +OMEPRAZOLE 20 M20 M1 PO; +PROPRANOLOL 20M20 M1 PO; +REQUIP 1 MG TABL1 M1 PO; -ROPINIROLE HCL4 MG PO; +[UNRECOGNIZED DRUG - OTHER]; +l-thyroxine PO
--- NOTE | ~2019-04-29 | PAINCON ---
[address] [address] PAIN MANAGEMENT CONSULTATION Name: GAVIOTA HOYOS Room: [facility].#: [id number] Admission: 04/29/19 Attend Phys: Verena Soto MD Discharge: Date of : 70 Report #: [id number] THIS REPORT FOR: //name// CC: Fareed Kumar MD DATE OF SERVICE: 04/29/2019 CHIEF COMPLAINT: Shoulder pain, left leg pain, migraines. HISTORY: The patient is a 48-year-old female who has been seen in the pain clinic. As you recall, she has some pain, which has been chronic in nature. It involves her back. She has undergone back surgery. She had a laminectomy at L2-L3 and transforaminal interbody fusion from L2 through L4. Continues to have instrumentation in place. This was in 09/2018. Continues to have some pain and discomfort and rates her pain as a 6/10. She has had cataract surgery in March and February 2019. Has some complaints of torn rotator cuff in January. Has left leg pain, which she describes as sharp and shooting. Epidural steroid injections in the past have been helpful. She is considering whether or not to proceed with an epidural steroid injection in the near future. She finds that her medications are helpful and has returned today for renewal of her medications. She feels things are about 50% improved with their use. Pain is worse with walking, sitting, standing, lifting and bending. Finds that use of her medications as well as heat and rest are beneficial. ALLERGIES: PENICILLIN, CODEINE, ISUPREL. CURRENT MEDICATIONS: Albuterol (ProAir) inhaler 2 puffs, amitriptyline 50 mg at bedtime, Lipitor 10 mg, Lumigan 0.01% eyedrops, Black Cohosh 500 mg b.i.d., Symbicort 160/4.5 b.i.d., bupropion XL 300 mg, calcium, clonidine 0.1 mg, Restasis each eye b.i.d., diclofenac 50 mg b.i.d., Colace 100 mg b.i.d., estrogen 1.25 mg b.i.d., [place]ymour oil 500 mg b.i.d., fenofibrate 160 mg, fentanyl patch 12.5 mcg q.72 hours, Lasix 20 mg, Neurontin 300 mg t.i.d., Linzess 145 mg, Claritin 10 mg, magnesium citrate 100 mg, melatonin 3 mg at bedtime, methocarbamol 500 mg t.i.d., metoprolol XL 25 mg, multivitamins, omeprazole 40 mg, Zofran 4 mg, oxycodone 10/325 q.i.d., MiraLax 119 grams, propranolol 20 mg, rizatriptan 5 mg, Requip 1 mg, eye drops tetrahydrz/dext, thyroxine 25 mcg. PAIN CLINIC ASSESSMENT AND PQRS: 1. The patient has a history of osteoarthritic changes in her back. She is not being treated for rheumatoid arthritis. 2. Height 5 feet 3 inches, weight 149 pounds, BMI is 26. 3. Vital Signs: Blood pressure is 125/70, heart rate 73, respiratory rate 16, room air saturation is 98%. [facility] [address] [place] [address] PAIN MANAGEMENT CONSULTATION Name: GAVIOTA HOYOS Room: [facility].R.#: [id number] Admission: 04/29/19 Attend Phys: Verena Soto MD Discharge: Date of : 70 Report #: [id number] 4. Pain intensity 09/16. 5. Fall history: The patient has not fallen in the last 3 months. 6. Blood thinner. The patient is not on a blood thinning medication. 7. Hypertension. The patient is being treated for hypertension. 8. Opioids. The patient received medication from one source, pain clinic. 9. Risk assessment tool, low for opioid use. 10. Recreational drug use: The patient denies. 11. Tobacco: The patient does smoke cigarettes one-half pack of cigarettes per day. 12. Alcohol: The patient drinks alcoholic beverages weekly. PHYSICAL EXAMINATION: GENERAL: The patient is a well-developed, well-nourished white female. Appears her stated age. She is alert and oriented x 3. Her affect is appropriate. Speech is fluent. HEENT: Normocephalic, atraumatic. Extraocular eye muscles intact. Sclerae nonicteric. Mucous membranes are moist. NECK: Without adenopathy or JVD. The patient wears glasses. Well-healed incisions in the low back area. Status post rotator cuff repair. ABDOMEN: Nontender. EXTREMITIES: Lower extremity muscle strength judged to be 5/5 for the major muscle groups in the lower extremity. IMPRESSION: 1. History of cervical radiculopathy with discomfort C5 through T7. 2. Cervical radiculopathy history. 3. Chronic lumbar radiculopathy, status post fusion with screws and laminectomy at L2-L3 with a transforaminal lumbar interbody fusion L2 through L4 with instrumentation in 09/2018. 4. Opioid dependency to help control pain. 5. Chronic intractable pain. 6. Complicated medical management using opioids. RECOMMENDATIONS: We discussed treatment options with the patient. Risks and benefits of the possible complication of use of opioids were discussed. They could include development of tolerance. One can also develop addiction. The patient has not shown any signs of addiction. She has taken her medications as prescribed. She feels the medications are helpful and enable her to engage in activities, she would not be able to without their use. Takes her medications as prescribed. She has not shown any addictive behaviors. We will renew her medications. A script for her medications has been provided. We will continue with Percocet 10/325 one p.o. q.4-6 hours. She will continue with fentanyl patches 25 mcg 1 p.o. q.72 hours. She will also continue with 12 mcg Duragesic patch in conjunction with the 25 mcg for a total of 37 mcg daily. The patient will also continue with methocarbamol. Prescription for Savella has been provided 50 mg 1 p.o. b.i.d. The patient will also [place] [address] PAIN MANAGEMENT CONSULTATION Name: SOHAGAVIOTA M Room: [facility]#: [id number] Admission: 04/29/19 Attend Phys: Verena Soto MD Discharge: Date of : 70 Report #: [id number] shoulder area to help control the pain. We would like to thank you for letting us participate in her care. We hope she continues to improve. By: [id number]. MD lupe Corona
== END ==
LOC: M.PC 04-08 08:00
DX: M54.12 Radiculopathy, cervical region (principal); M54.16 Radiculopathy, lumbar region; G89.4 Chronic pain syndrome; Z79.891 Long term (current) use of opiate analgesic; Z79.899 Other long term (current) drug therapy

== ENCOUNTER → 2019-07-22 | Outpatient (CLI) | payer BC, MEDICARE ==
[~2019-07-22] MED LIST changes: +EMGALITY S120 MG/1 M SUBQ; +FERROUS FUMARA324 MG PO; +PERCOCET 10-321 EAC1 PO
--- NOTE | 2019-07-23 15:09 | PAINCON ---
[address] [address] PAIN MANAGEMENT CONSULTATION Name: GAVIOTA HOYOS Room: [facility].#: [id number] Admission: 07/22/19 Attend Phys: Verena Soto MD Discharge: Date of : 70 Report #: [id number] THIS REPORT FOR: //name// cc: Fareed Simpson Steven B. MD ~ THIS REPORT FOR: //name// CC: Fareed Barajas DATE OF SERVICE: 07/22/2019 CHIEF COMPLAINT: Neck, shoulder and back pain. HISTORY: The patient is a 48-year-old female who has been followed in the pain clinic. As you may recall, she has had 6 surgeries. She has undergone back surgery. She returns today indicating that her pain continues to be somewhat problematic. She rates her pain as a 7.5/10. She is having some pain in her left hip. She has been experiencing shooting pain in her neck. She has noticed some difficulty turning her head to the right at times. She has undergone cervical epidural steroid injections in the past and is open to that possibility in the future. She has returned today indicating that her pain is about 50% improved. Walking, sitting, standing, lifting and bending can be problematic. She continues to work at [employer]. She feels that the fentanyl medication is helpful. She does not have any problems with this medicine. She also finds oxycodone beneficial. She is able to think clearly. These medications are not clouding her sensorium. She has returned today for renewal of her medications. ALLERGIES: PENICILLIN, CODEINE, and ISUPREL. CURRENT MEDICATIONS: ProAir 2 puffs, amitriptyline 50 mg, Lipitor 10 mg, Lumigan 0.01% eyedrops, black cohosh 500 mg b.i.d., Symbicort 160/4.5, bupropion XL 300 mg, Caltrate, clonidine 0.1 mg, Restasis eyedrops, diclofenac b.i.d. 50 mg, Colace 100 mg b.i.d., estrogen, [place]field oil, fenofibrate 160 mg, fentanyl 12.5 mcg patch plus 25 mcg patch total of 37 mcg daily every 72 hours, Lasix 20 mg, Neurontin 300 mg t.i.d., Emgality subcutaneous 120 mg monthly, Linzess 145 mcg, Claritin 10 mg, magnesium 100 mg, melatonin 3 mg, methocarbamol 500 mg t.i.d., metoprolol 25 mg, multivitamins, omeprazole 40 mg, Zofran 4 mg, oxycodone 10/325 one p.o. 4 times daily, MiraLax 119 grams, propranolol 20 mg, Rizatriptan 5 mg, Requip 1 mg and thyroxine 25 mcg. PAIN CLINIC ASSESSMENT AND PQRS: 1. The patient has a long history of osteoarthritis with changes in her back. She is [place] [address] PAIN MANAGEMENT CONSULTATION Name: SOHAGAVIOTA M Room: [facility]#: [id number] Admission: 07/22/19 Attend Phys: Verena Soto MD Discharge: Date of : 70 Report #: [id number] 2. Height 5 feet 3 inches, weight 151 pounds, BMI is 27. 3. Vital Signs: Blood pressure 121/74, heart rate 68, respiratory rate 16, room air saturation 99%, temperature 97.6. 4. Pain intensity 10/16. 5. Fall history: The patient has not fallen in the last 3 months. 6. Blood thinner. The patient is not on a blood thinning medication. 7. Hypertension. The patient is being treated for hypertension. 8. Opioids greater than 6 weeks. The patient received medication from the pain clinic. 9. Risk assessment tool, low for opioids. 10. Recreational drug use. The patient denied. 11. Tobacco: The patient does smoke cigarettes, 1-1/2 pack of cigarettes per day. 12. Alcohol: The patient drinks alcoholic beverages weekly. PHYSICAL EXAMINATION: GENERAL: The patient is a well-developed, well-nourished white female. Appears her stated age. She is alert and oriented x 3. Her affect is appropriate. Speech is fluent. HEENT: Normocephalic, atraumatic. Extraocular eye muscles intact. Sclerae nonicteric. Mucous membranes are moist. NECK: Without adenopathy or JVD. The patient is wearing glasses. Well-healed incision in the low back area. Status post rotator cuff repair. ABDOMEN: Nontender. MUSCULOSKELETAL: Upper extremity muscle strength judged to be 5-/5 for the major muscle groups and 5/5 for the major muscle groups in the lower extremity. IMPRESSION: 1. History of cervical radiculopathy with discomfort C5 through T7. 2. Cervical radiculopathy history. 3. Chronic lumbar radiculopathy, status post fusion with screws and laminectomy at L2-L3 and transforaminal lumbar intervertebral fusion L2 through L4 with instrumentation on 09/26/2018. 4. Opioid dependency to help control pain. 5. Chronic intractable pain. 6. Complicated medical management using opioid medications. RECOMMENDATIONS: We discussed treatment options with the patient. At this juncture, she feels that her medications provide benefit. She is about 50% improved with her current use. A script for her medications have been provided. The patient will continue with methocarbamol 1 p.o. t.i.d. She will also continue with oxycodone 10 mg one p.o. q. 6 hours p.r.n., total of 120 tablets. She has been given medications for the next 3 months. She will also continue with fentanyl 12 mcg per hour q. 72 hours in conjunction with a 25 mcg patch of fentanyl for a total of 37 mcg daily q. 72 hours. She [place] [address] PAIN MANAGEMENT CONSULTATION Name: GAVIOTA HOYOS Room: [facility].#: [id number] Admission: 07/22/19 Attend Phys: Verena Soto MD Discharge: Date of : 70 Report #: [id number] any concerns. We would like to thank you for letting us participate in her care. We hope she continues to improve. <ELECTRONICALLY SIGNED> By: Verena Soto MD 07/23/19 1509 [id number]. Angelo Soto MD /nt
== END ==
LOC: M.PC 01:33
DX: M54.16 Radiculopathy, lumbar region (principal); F11.20 Opioid dependence, uncomplicated; G89.29 Other chronic pain; M54.2 Cervicalgia; M25.519 Pain in unspecified shoulder; I10 Essential (primary) hypertension; F17.210 Nicotine dependence, cigarettes, uncomplicated; F10.10 Alcohol abuse, uncomplicated; Z88.0 Allergy status to penicillin; Z87.39 Personal history of other diseases of the musculoskeletal system and connective tissue; Z88.5 Allergy status to narcotic agent; Z88.8 Allergy status to other drugs, medicaments and biological substances; Z79.1 Long term (current) use of non-steroidal anti-inflammatories (NSAID); Z79.810 Long term (current) use of selective estrogen receptor modulators (SERMs); Z79.899 Other long term (current) drug therapy

== ENCOUNTER → 2019-08-19 | Outpatient (CLI) | payer BC, MEDICARE | END | disposition home or self-care (01) | LOC: M.PC 05:17 | DX: M54.12 Radiculopathy, cervical region (principal); G89.29 Other chronic pain ==

== ENCOUNTER → 2019-10-14 | Outpatient (CLI) | payer BC, MEDICARE ==
--- NOTE | 2019-10-16 15:59 | PAINCON ---
[address] [address] PAIN MANAGEMENT CONSULTATION Name: GAVITOA HOYOS Room: [facility].#: [id number] Admission: 10/14/19 Attend Phys: Verena Soto MD Discharge: Date of : 70 Report #: [id number] THIS REPORT FOR: //name// cc: Fareed Simpsno Bruce R. DO ~ THIS REPORT FOR: //name// CC: Fareed Soto DATE OF SERVICE: 10/14/2019 CHIEF COMPLAINT: The neck pain is better since I have a cervical injection, still having some pain in the low back. HISTORY: The patient is a 49-year-old female who has been followed in the pain clinic because of chronic pain. She has had back surgery. She notes that pain is still problematic in the low back area. She rates it as 6/10. She is still experiencing pain that radiates down to the left hip. She has taken the medication as prescribed. She is not having any complications from their use. She feels that the pain provides greater than 50% improvement. She would like to continue with her medications. Activities such as walking, sitting, standing can exacerbate her discomfort. She has been using medications as well as heat and rest to help control things. ALLERGIES: PENICILLIN, CODEINE, ISUPREL. CURRENT MEDICATIONS: ProAir 2 puffs, amitriptyline 50 mg, Lipitor 10 mg, Lumigan 0.1% eyedrops, black cohosh 500 mg b.i.d., Symbicort 160/4.5, bupropion XL 300 mg, Caltrate, clonidine 0.1 mg, Restasis eyedrops, diclofenac b.i.d. 50 mg, Colace 100 mg b.i.d., estrogen, [place] oil, fenofibrate 160 mg, fentanyl patches 25 mcg change q. 72 hours, 12.5 mcg patch for a total of 37 mcg q. 72 hours, Lasix 20 mg, Neurontin 300 mg t.i.d., Emgality subcutaneous 120 mg monthly, Linzess 145 mcg, Claritin 10 mg, magnesium 100 mg, melatonin 3 mg, methocarbamol 500 mg t.i.d., metoprolol 25 mg, multivitamins, omeprazole 40 mg, Zofran 4 mg, oxycodone 10/325 one p.o. q.i.d., MiraLax 119 mg, propranolol 20 mg, rizatriptan 5 mg, Requip 1 mg and thyroxine 25 mcg. PAIN CLINIC ASSESSMENT AND PQRS: 1. The patient has a history of osteoarthritis with changes in her back and some discomfort in her neck. She is not being treated for rheumatoid arthritis. 2. Height 5 feet 3 inches, weight 161 pounds, BMI is 28. 3. Vital Signs: Blood pressure 120/67, heart rate 71, respiratory rate 16, room air saturation 97%, temperature 97.0. 4. Pain intensity 6/10. 5. Fall history: The patient has not fallen in the last 3 [place] [address] PAIN MANAGEMENT CONSULTATION Name: GAVIOTA HOYOS Room: [facility]#: [id number] Admission: 10/14/19 Attend Phys: Verena Soto MD Discharge: Date of : 70 Report #: [id number] 6. Blood thinner. The patient is not on a blood thinning medication. 7. Hypertension. The patient is being treated for hypertension. 8. Opioids greater than 6 weeks. The patient received medication from the pain clinic. 9. Risk assessment tool, low for opioid use. 10. Functional assessment tool reviewed. 11. Recreational drug use. The patient denies. 12. Tobacco: The patient smokes 1-1/2 pack of cigarettes per day, has smoked for last 30 years. 13. Alcohol: The patient drinks alcoholic beverage weekly. PHYSICAL EXAMINATION: GENERAL: The patient is a well-developed, well-nourished white female. Appears her stated age. She is alert and oriented x 3. Her affect is appropriate. Speech is fluent. HEENT: Normocephalic, atraumatic. Extraocular eye muscles intact. Sclerae nonicteric. Mucous membranes are moist. The patient is wearing a mask. NECK: Without adenopathy or JVD. The patient has less neck and arm pain. BACK: The patient has some pain in the lower back with pain that radiates down into the left leg. She is status post rotator cuff repair with some shoulder discomfort. ABDOMEN: Nontender. EXTREMITIES: Upper extremity muscle strength judged to be 5-/5 for the major muscle groups in the upper extremity. IMPRESSION: 1. Cervical radiculopathy with improvement after the last epidural steroid injection in the C5/T1 area. 2. Cervical radiculopathy history. 3. Lumbar radiculopathy, status post fusion with screws and laminectomy at L1/L2 through L3 and transforaminal lumbar intervertebral fusion at L2 through L4 with instrumentation in 09/2018. 4. Opioid dependency to help control pain. 5. Chronic intractable pain. 6. Complicated medical management using opioids. RECOMMENDATIONS: We discussed treatment options with the patient. At this juncture, we will continue with her medications. She is aware that opioid medications can become problematic for some people. Some people have developed addiction. The patient has not shown any signs of addiction. She has taken her medication as prescribed. She feels that the medications continue to enable her to engage in activities of daily living and be effective. She rates her pain as about 50% improved with her current medical regimen. She keeps her medications in a guarded area. She is aware that COVID-19 pandemic is present. She is staying home as much as possible. We will continue with her medications. A script for her medications have been provided. [place] [address] PAIN MANAGEMENT CONSULTATION Name: SOHAGAVIOTA M Room: [facility].#: [id number] Admission: 10/14/19 Attend Phys: Verena Soto MD Discharge: Date of : 70 Report #: [id number] oxycodone 10 mg 1 p.o. q.i.d. Scripts for 3 months of medication have been provided. The patient will also continue with fentanyl 25 mcg patches as well as a 12 mcg patch to be used in conjunction with a 25 for a total of 37.5 mcg per day. She will monitor her GI tract. She will continue with diclofenac 50 mg 1 p.o. b.i.d. She will also continue with methocarbamol 500 mg tablets. She will take 1 p.o. t.i.d. She will call us if she has any concerns. We would like to thank you for letting us participate in her care. We hope she continues to improve. <ELECTRONICALLY SIGNED> By: Verena Soto MD 10/16/19 [id number]. Angelo Soto MD /PMT
== END ==
LOC: M.PC 05:35
PROVIDERS: ATTEND Anesthesiology Pain Medicine
DX: M43.26 Fusion of spine, lumbar region (principal); M54.12 Radiculopathy, cervical region; M54.16 Radiculopathy, lumbar region; Z88.5 Allergy status to narcotic agent; Z88.0 Allergy status to penicillin; Z79.891 Long term (current) use of opiate analgesic

== ENCOUNTER → 2020-01-27 | Outpatient (CLI) | payer BC, MEDICARE ==
--- NOTE | ~2020-01-27 | PAINCON ---
[address] [address] PAIN MANAGEMENT CONSULTATION Name: GAVIOTA HOYOS Room: [facility].#: [id number] Admission: 01/27/20 Attend Phys: Verena Soto MD Discharge: Date of : 70 Report #: [id number] THIS REPORT FOR: //name// cc: Fareed Simpson Bruce R. DO ~ THIS REPORT FOR: //name// CC: Fareed Soto DATE OF SERVICE: 01/27/2020 CHIEF COMPLAINT: Cervical neck pain as well as low back pain. HISTORY: The patient is a 49-year-old female who has been followed in the pain clinic because of chronic pain involving her back as well as her neck. She has had back surgery as you may recall. In spite of the surgery, she still finds that the pain is problematic. She rates her pain as a 6/10. She has failed back syndrome and continues to use medications to help control the pain. She feels her pain is about 50% improved with her current medical regimen. Walking, sitting, standing, lifting and bending are problematic. She does note some improvement with use of rest, heat and with her current medical regimen. ALLERGIES: PENICILLIN, CODEINE, ISUPREL. CURRENT MEDICATIONS: 1. ProAir 2 puffs. 2. Amitriptyline 50 mg. 3. Lipitor 10 mg. 4. Lumigan eyedrops. 5. Black cohosh 500 mg b.i.d. 6. Symbicort 160/4.5. 7. Bupropion XL 300 mg. 8. Caltrate. 9. Clonidine 0.1 mg. 10. Restasis eyedrops. 11. Diclofenac b.i.d. 50 mg. 12. Colace 100 mg b.i.d.. 13. Estrogen. 14. Armour oil. 15. Fenofibrate 160 mg. 16. Fentanyl patches 25 mcg in conjunction with 12.5 mg patch, total of 37 mcg q. 72 hours. 17. Neurontin 300 mg t.i.d. 18. Lasix 20 mg. 19. Emgality subcutaneous [address] [place] [address] PAIN MANAGEMENT CONSULTATION Name: GAVIOTA HOYOS Room: [facility]#: [id number] Admission: 01/27/20 Attend Phys: Verena Soto MD Discharge: Date of : 70 Report #: [id number] 20. Linzess 145 mcg. 21. Claritin 10 mg. 22. Magnesium 100 mg. 23. Melatonin 3 mg. 24. Methocarbamol 500 mg t.i.d. 25. Metoprolol 25 mg. 26. Multivitamins. 27. Omeprazole. 28. Zofran. 29. Oxycodone 10/325 q.i.d. 30. MiraLax 117 mg. 31. Propranolol 20 mg. 32. Rizatriptan 5 mg. 33. Requip 1 mg. 34. Thyroxine 25 mcg. PAIN CLINIC ASSESSMENT AND PQRS: 1. The patient has a history of osteoarthritis with changes in her back as well as some discomfort in her neck. She is not being treated for rheumatoid arthritis. 2. Height 5 feet 3 inches, weight 150 pounds, BMI is 26. 3. Vital Signs: Blood pressure 100/56, heart rate 64, respiratory rate 16, room air saturation is 98%, temperature 96.6. 4. Pain intensity: 6/10. 5. Fall history: The patient has not fallen in the last 3 months. 6. Blood thinner: The patient is not on a blood thinning medication. 7. Hypertension: The patient is being treated for hypertension. 8. Opioids greater than 6 weeks: The patient receives medication from the pain clinic. 9. Risk assessment tool: Low for opioid use. 10. Functional assessment tool: Reviewed. 11. Recreational drug use. The patient denies. 12. Tobacco: The patient smokes 1-1/2 pack of cigarettes per day, has smoked for last 30 years. 13. Alcohol: The patient admits to weekly use of alcoholic beverage. PHYSICAL EXAMINATION: GENERAL: The patient is a well-developed, well-nourished white female. Appears her stated age. She is alert and oriented x 3. Her affect is appropriate. Speech is fluent. HEENT: Extraocular eye muscles are intact. The patient is wearing a facial covering. The patient complains of some pain and discomfort in her neck as well as some pain in her arms. NECK: The patient has some pain in the back and lower back area with radiation down into her left leg. Status post rotator cuff repair [place] [address] PAIN MANAGEMENT CONSULTATION Name: SOHAGAVIOTA M Room: [facility]#: [id number] Admission: 01/27/20 Attend Phys: Verena Soto MD Discharge: Date of : 70 Report #: [id number] ABDOMEN: Nontender. EXTREMITIES: Upper extremity muscle strength judged to be 5-/5 for the major muscle groups in the upper extremity. Lower extremity muscle strength 5-/5 for the major muscle groups in the lower extremity. IMPRESSION: 1. Cervical radiculopathy with improvement after epidural steroid injection in the past. 2. Lumbar radicular pain, status post fusion with screws and laminectomy at L1-L2 through L3 transforaminal lumbar intervertebral fusion L2 through L4 with instrumentation on 09/2018. 3. Opioid dependency to help control her pain. 4. Chronic intractable pain. 5. Complicated medical management using opioids. RECOMMENDATIONS: We discussed treatment options with the patient. At this juncture, the patient feels that her medications continue to be helpful. We have discussed the problems with opioid use. The patient is aware that certain patients have become addicted to the medication. She has taken the medication as prescribed. She feels the medications enable her to engage in activities that she would not be able to without their use. She feels she gets about 50% improvement with the pain. She is status post surgery in the low back area with some failed back syndrome and complaints. The patient is aware that COVID-19 is problematic. She is continuing to snf at home as much as possible. A script for her medications of oxycodone 10 mg 1 p.o. q.i.d. has been written. The patient will also continue with fentanyl 12.5 mg as well as 25 mcg q.72 hours to help control the pain. She will continue to monitor her GI tract. She will continue with diclofenac 50 mg b.i.d. The patient will also use methocarbamol 500 mg. She will call us if she has any concerns. We would like to thank you for letting us participate in her care. We hope she continues to improve. By: [id number]. Angelo Soto MD /laney
== END ==
LOC: M.PC 08:12
PROVIDERS: ATTEND Anesthesiology Pain Medicine
DX: M54.12 Radiculopathy, cervical region (principal); M43.26 Fusion of spine, lumbar region; G89.29 Other chronic pain; F11.20 Opioid dependence, uncomplicated; Z88.8 Allergy status to other drugs, medicaments and biological substances; Z79.899 Other long term (current) drug therapy

== ENCOUNTER → 2020-04-20 | Outpatient (CLI) | payer BC, MEDICARE | LOC: M.PC 07:43 | PROVIDERS: ATTEND Anesthesiology Pain Medicine | DX: G89.4 Chronic pain syndrome (principal); M54.16 Radiculopathy, lumbar region; Z79.891 Long term (current) use of opiate analgesic ==

== ENCOUNTER → 2020-07-13 | Outpatient (CLI) | payer BC, MEDICARE | LOC: M.PC 07:58 | PROVIDERS: ATTEND Anesthesiology Pain Medicine | DX: M54.12 Radiculopathy, cervical region (principal); M43.26 Fusion of spine, lumbar region; G89.29 Other chronic pain; F11.20 Opioid dependence, uncomplicated ==

== ENCOUNTER → 2020-09-20 | Outpatient (CLI) | payer BC, MEDICARE | LOC: M.LAB 12:01 | PROVIDERS: ATTEND Orthopaedic Surgery | DX: Z01.812 Encounter for preprocedural laboratory examination (principal); S52.591A Other fractures of lower end of right radius, initial encounter for closed fracture; X58.XXXA Exposure to other specified factors, initial encounter; Y92.89 Other specified places as the place of occurrence of the external cause; Y93.89 Activity, other specified; Y99.8 Other external cause status; Z20.822 Contact with and (suspected) exposure to COVID-19 ==

== ENCOUNTER → 2020-10-05 | Outpatient (CLI) | payer BC, MEDICARE | LOC: M.PC 07:47 | PROVIDERS: ATTEND Anesthesiology Pain Medicine | DX: M54.16 Radiculopathy, lumbar region (principal); G89.29 Other chronic pain; K21.9 Gastro-esophageal reflux disease without esophagitis; E78.5 Hyperlipidemia, unspecified; J43.9 Emphysema, unspecified; F17.200 Nicotine dependence, unspecified, uncomplicated; Z79.891 Long term (current) use of opiate analgesic; Z79.899 Other long term (current) drug therapy; Z88.0 Allergy status to penicillin; Z88.5 Allergy status to narcotic agent ==

== ENCOUNTER → 2020-12-28 | Outpatient (CLI) | payer BC, MEDICARE ==
[~2020-12-28] MED LIST changes: +ATACAND8 MG PO; +ESTRACE0.5 MG PO; +FERRETTS325 MG PO; -FERROUS FUMARA324 MG PO
== END ==
LOC: M.PC 07:52
PROVIDERS: ATTEND Anesthesiology Pain Medicine
DX: G89.29 Other chronic pain (principal); M54.12 Radiculopathy, cervical region; M54.16 Radiculopathy, lumbar region; F11.90 Opioid use, unspecified, uncomplicated; Z79.899 Other long term (current) drug therapy; Z88.8 Allergy status to other drugs, medicaments and biological substances

== ENCOUNTER → 2021-03-22 | Outpatient (CLI) | payer BC, MEDICARE ==
[~2021-03-22] MED LIST changes: +FENTANYL1 EAC7 TRANSDERM; +FENTANYL1 EACH TRANSDERM
== END ==
LOC: M.PC 07:58
PROVIDERS: ATTEND Anesthesiology Pain Medicine
DX: M54.12 Radiculopathy, cervical region (principal); M54.16 Radiculopathy, lumbar region; G89.29 Other chronic pain; J44.9 Chronic obstructive pulmonary disease, unspecified; K21.9 Gastro-esophageal reflux disease without esophagitis; Z88.0 Allergy status to penicillin; Z88.8 Allergy status to other drugs, medicaments and biological substances; Z79.899 Other long term (current) drug therapy